=== PATIENT | female | born 1945 | race Two or more races ===

== ENCOUNTER 2024-02-29 14:02 | Emergency (ER) | payer MEDICARE, MEDICAID, SELFPAY ==
[2024-02-29] VITALS (19 sets, daily range): BP systolic 154–172; BP diastolic 83–96; PULSE 64–79; O2SAT 94–97; BMI 25.5
--- NOTE | 2024-02-29 14:46 | ED_ITS ---
HPI HPI - General Adult General Chief complaint: Chest Pain Stated complaint: CVA SYMPTOMS Time Seen by Provider: 02/29/24 14:46 Source: patient and friend Mode of arrival: Wheelchair Limitations: language barrier History of Present Illness HPI narrative: This patient is here today to be evaluated for dizziness and vertigo and chest pain. The patient does have some speech challenges because of foreign nationality but her friend communicates very effectively. She said that for the last several days she has had difficulty walking because she is wobbly and has vertigo where everything is spinning around. And then she has had intermittent episodes of chest pain over the last several days. She does not have any discomfort now and her initial twelve-lead EKG did not show any gross abnormalities. She has not had previous coronary disease, abnormal stress test or heart catheterizations that the friend is aware of and she confirms that information. She is switching family doctors from a PA here in [place] to a family doctor that she scheduled to see tomorrow in [facility]. She has not had fever shakes or chills. No vomiting or diarrhea. She has not had a previous stroke. She has not had slurring of her speech but her friend believes that she was a little bit less alert today than usual. No history of falls or injury to the head or neck area. She is not on any antibiotics. Normally she is fully ambulatory and lives by herself but her friend who knows her very well says that she just has been doing very well and can hardly walk without getting short of breath. Related Data Home Medications ?Medication ?Instructions ?Recorded ?Confirmed losartan 100 1 tab PO DAILY 02/29/24 02/29/24 mg-hydrochlorothiazide 25 mg tablet Allergies Allergy/AdvReac Type Severity Reaction Status Date / Time No Known Drug Allergies Allergy Verified 02/29/24 14:12 Opioid HPI Opioid Management Most Recent Opioid Data: Last Pain Scale 7 02/29/24 14:33 Exam Narrative Exam Narrative: Patient awake alert GCS 15 follows all commands there is a mild language barrier but her friend is able to provide good translational skills for us. She does not appear acutely ill her skin is warm and dry with Mucom[place] mucous membranes pink with no evidence of pallor clamminess or diaphoresis. There is no scleral icterus. On HEENT examination she does have horizontal nystagmus. However pupillary light response is normal. There is no facial asymmetry and cranial nerves II through XII are normal. Heart rate and rhythm are normal as well. She has no arrhythmia or ST segment elevation on her EKG. Does not have any carotid bruits. Lungs are clear with no wheeze rales or rhonchi or respiratory distress. She has no desaturation while here in the ER. Extremities show no evidence of trauma or injury. There is no petechiae purpura rash or other exanthem. Constitutional Vital Signs, click to edit/add: Last Vital Signs Pulse 79 02/29/24 15:20 Resp 15 02/29/24 15:20 BP 154/96 H 02/29/24 14:09 Pulse Ox 95 02/29/24 15:20 O2 Del Method Room Air 02/29/24 14:34 Course Vital Signs Vital signs: Vital Signs Pulse Rate 79 02/29/24 14:08 Respiratory Rate 16 02/29/24 14:08 Blood Pressure 154/96 H 02/29/24 14:08 Pulse Oximetry 95 02/29/24 14:08 Oxygen Delivery Method Room Air 02/29/24 14:08 Pulse Rate 79 02/29/24 15:20 Respiratory Rate 15 02/29/24 15:20 Blood Pressure 154/96 H 02/29/24 14:09 Pulse Oximetry 95 02/29/24 15:20 Oxygen Delivery Method Room Air 02/29/24 14:34 Medical Decision Making MDM Narrative Medical decision making narrative: Patient complains of chest pain and being off balance dizziness spinning of the room. CT of the head was normal. Neurological exam showed no focal or neurological deficits in the cerebellar region or frontal area on the exam. When we walked her here after the studies were completed she felt off balance and dizzy and said that things are spinning. Her cardiac troponin and D-dimer are both negative. Twelve-lead EKG is normal. I believe most of her symptoms are explained by a vestibular dysfunction. Will place her on medications for this. Do not see any indication for further cardiac testing at this time but she should follow-up and consider that with her primary care doctor Lab Data Labs: Lab Results 02/29/24 02/29/24 Range/Units 14:34 15:55 WBC 8.7 (4.0-11.0) 10^3/uL RBC 4.05 L (4.20-5.40) 10^6/uL Hgb 12.5 (12.0-16.0) g/dL Hct 37.3 (36.0-48.0) % MCV 92.1 (81.0-99.0) fL MCH 30.9 (26.7-34.0) pg MCHC 33.5 (29.9-35.2) g/dL RDW 12.7 (11.0-15.0) % Plt Count 283 (150-450) 10^3/uL MPV 8.8 L (9.5-13.5) fL Neut % (Auto) 77.0 H (43.0-75.0) % Lymph % (Auto) 14.4 L (20.5-60.0) % [place] % (Auto) 5.8 (1.7-12.0) % Eos % (Auto) 1.4 (0.9-7.0) % Baso % (Auto) 0.9 (0.2-2.0) % Neut # (Auto) 6.7 H (1.4-6.5) 10^3/uL Lymph # (Auto) 1.3 (1.2-3.8) 10^3/uL [place] # (Auto) 0.5 (0.3-0.8) 10^3/uL Eos # (Auto) 0.1 (0.0-0.7) 10^3/uL Baso # (Auto) 0.1 (0.0-0.1) 10^3/uL Abs Immat Gran (auto) 0.04 H (0.00-0.03) 10^3/uL Imm/Tot Granulo (auto) 0.5 (0.0-0.5) % D-Dimer 0.40 (<=0.59) mg/L FEU Sodium 139 (136-145) mmol/L Potassium 3.7 (3.5-5.1) mmol/L Chloride 103 (98-107) mmol/L Carbon Dioxide 26.5 (21.0-32.0) mmol/L Anion Gap 13.2 BUN 20.0 H (7.0-18.0) mg/dL Creatinine 1.00 (0.55-1.02) mg/dL Est GFR ( Amer) >60 (>=60) Est GFR (Non-Af Amer) 54 L (>=60) BUN/Creatinine Ratio 20.0 Glucose 106 (74-106) mg/dL Calcium 9.3 (8.5-10.1) mg/dL Total Bilirubin 0.4 (0.2-1.0) mg/dL AST 18 (15-37) U/L ALT 36 (14-59) U/L Alkaline Phosphatase 97 (46-116) U/L Troponin I High Sens 11.2 (4.0-51.3) pg/mL NT-Pro-B Natriuret Pep 104.0 (<=1800.0) pg/mL Total Protein 7.1 (6.4-8.2) g/dL Albumin 3.6 (3.4-5.0) g/dL Globulin 3.5 g/dL Albumin/Globulin Ratio 1.0 Urine Color Lt. yellow (YELLOW) Urine Clarity Clear (CLEAR) Urine pH 5.5 (5.0-9.0) Ur Specific [place] 1.015 (1.005-1.025) Urine Protein Negative (NEG/TRACE) mg/dL Urine Glucose (UA) Negative (NEGATIVE) mg/dL Urine Ketones Negative (NEGATIVE) mg/dL Urine Occult Blood Negative (NEGATIVE) Urine Nitrite Negative (NEGATIVE) Urine Bilirubin Negative (NEGATIVE) Urine Urobilinogen 0.2 (0.2-1.0) EU/dL Ur Leukocyte Esterase Negative (NEGATIVE) Discharge Plan Discharge Chief Complaint: Chest Pain Clinical Impression: Vertigo Patient Disposition: Home, Self-Care Time of Disposition Decision: 16:36 Prescriptions / Home Meds: No Action losartan-hydrochlorothiazide 100-25 mg tablet 1 tab PO DAILY Print Language: Niuean Additional Instructions: Antivert 3 times a day for several days. Follow-up primary care doctor to consider other testing as discussed Referrals: Physician,Non-Staff, MD [Primary Care Provider] - 1 week
--- NOTE | 2024-02-29 14:48 | XR_ITS ---
The [address] [address] Patient Name: ROBYN LUNDBERG MRN: [id number] date: 1945 Sex: F Assigned Patient Location: ER Current Patient Location: ER Accession/Order Number: [id number] Exam Date: 02/29/2024 15:01 Report Date: 02/29/2024 15:21 At the request of: FABIOLA GRAHAM Procedure: XR chest 1V EXAMINATION: XR chest 1V HISTORY: Chest pain COMPARISON: No relevant comparison available. FINDINGS: LUNGS: Underexpanded lungs with mild haziness within left lateral lung base. VASCULATURE: No increased pulmonary vasculature. PLEURA: No pneumothorax, effusion, or pleural thickening. CARDIAC: No cardiomegaly or cardiac silhouette abnormality. MEDIASTINUM: No visible mass or adenopathy. BONES: No fracture or visible bone lesion. OTHER: Negative. XR/XR chest 1V IMPRESSION: 1. Low lung volume examination with mild lingular infiltrates versus atelectasis. Electronically authenticated by: CASEY ARANDA Date: 02/29/2024 15:21
--- NOTE | 2024-02-29 14:48 | ECG_ITS ---
The [facility] Test Date: 2024-02-29 Pat Name: ROBYN LUNDBERG Department: Room: - Gender: Female [employer]ping Machine Operator: : 1945 Requested By: Order Number: [id number] Reading MD: DAYA SCHMITT Measurements Intervals [place] Rate: 76 P: 49 UT: 184 QRS: 58 QRSD: 86 T: 40 QT: 402 QTc: 432 Interpretive Statements 1100 Sinus rhythm 9110 normal ECG Compared to ECG 09/03/2022 04:52:55 T-wave abnormality no longer present Possible ischemia no longer present Electronically Signed On 02-29-2024 22:56:59 EDT by DAYA SCHMITT
--- NOTE | 2024-02-29 14:48 | CT_ITS ---
The [place] [id number] Patient Name: ROBYN LUNDBERG MRN: [id number] date: 1945 Sex: F Assigned Patient Location: ER Current Patient Location: ER Accession/Order Number: [id number] Exam Date: 02/29/2024 15:01 Report Date: 02/29/2024 15:22 At the request of: FABIOLA GRAHAM Procedure: CT head/brain wo con EXAMINATION: CT head/brain wo con, 02/29/2024 3:01 PM EDT HISTORY: Altered mental status COMPARISON: None. TECHNIQUE: CT of the head without intravenous contrast. Dose reduction techniques were achieved by using automated exposure control and/or adjustment of mA and/or kV according to patient size and/or use of iterative reconstruction technique. FINDINGS: There is no evidence of acute intracranial hemorrhage, extra-axial collection, mass effect, midline shift, herniation or hydrocephalus. The ventricles, sulci and cisterns are normal configuration, prominent, reflecting a degree of volume loss.. Subcortical and periventricular white matter hypoattenuation presumably chronic microvascular ischemic change. Tiny focus of left frontal encephalomalacia with punctate cortical calcification relating to remote insult. The mastoid air cells are clear. There is no evidence of skull fracture. The surrounding soft tissues and osseous structures are unremarkable. CT/CT head/brain wo con IMPRESSION: 1. No acute intracranial finding such as hemorrhage, mass effect, hydrocephalus, or skull fracture. Electronically authenticated by: WALT SHANE Date: 02/29/2024 15:22
[2024-02-29 14:58] LABS: Basophils Absolute Auto 0.1 10^3/uL (0.0-0.1); Basophils Percent Auto 0.9 % (0.2-2.0); Eosinophils Absolute Auto 0.1 10^3/uL (0.0-0.7); Eosinophils Percent Auto 1.4 % (0.9-7.0); Hematocrit 37.3 % (36.0-48.0); Hemoglobin 12.5 g/dL (12.0-16.0); Immature Granulocytes Abs Auto 0.04 10^3/uL (0.00-0.03); Immature Granulocytes Pct Auto 0.5 % (0.0-0.5); Lymphocytes Absolute Auto 1.3 10^3/uL (1.2-3.8); Lymphocytes Percent Auto 14.4 % (20.5-60.0); Mean Corpuscular HGB Conc 33.5 g/dL (29.9-35.2); Mean Corpuscular Hemoglobin 30.9 pg (26.7-34.0); Mean Corpuscular Volume 92.1 fL (81.0-99.0); Mean Platelet Volume 8.8 fL (9.5-13.5); Monocytes Absolute Auto 0.5 10^3/uL (0.3-0.8); Monocytes Percent Auto 5.8 % (1.7-12.0); Neutrophils Absolute Auto 6.7 10^3/uL (1.4-6.5); Platelet Count 283 10^3/uL (150-450); Red Blood Count 4.05 10^6/uL (4.20-5.40); Red Cell Distribution Width 12.7 % (11.0-15.0); White Blood Count 8.7 10^3/uL (4.0-11.0)
[2024-02-29 15:08] LABS: Alanine Aminotransferase 36 U/L (14-59); Albumin Level 3.6 g/dL (3.4-5.0); Alkaline Phosphatase 97 U/L (46-116); Anion Gap 13.2; Aspartate Amino Transferase 18 U/L (15-37); Bilirubin Total 0.4 mg/dL (0.2-1.0); Calcium 9.3 mg/dL (8.5-10.1); Carbon Dioxide 26.5 mmol/L (21.0-32.0); Chloride 103 mmol/L (98-107); Estimated GFR (African America >60 (>=60); Estimated GFR (Non-African Ame 54 (>=60); Globulin 3.5 g/dL; Glucose 106 mg/dL (74-106); Potassium 3.7 mmol/L (3.5-5.1); Sodium 139 mmol/L (136-145); Total Protein 7.1 g/dL (6.4-8.2)
[2024-02-29 15:11] LABS: Troponin I High Sensitivity 11.2 pg/mL (4.0-51.3)
[2024-02-29 16:13] LABS: Bilirubin Urine NEGATIVE (NEGATIVE); Blood Urine NEGATIVE (NEGATIVE); Clarity Urine CLEAR (CLEAR); Color Urine LT. YELLOW (YELLOW); Glucose Urine UA NEGATIVE (NEGATIVE); Ketones Urine NEGATIVE (NEGATIVE); Leukocyte Esterase Urine NEGATIVE (NEGATIVE); Nitrite Urine NEGATIVE (NEGATIVE); Protein Urine NEGATIVE (NEG/TRACE); Specific Gravity Urine 1.015 (1.005-1.025); Urine Microscopic Indicated NO; Urobilinogen Urine 0.2 EU/dL (0.2-1.0); pH Urine 5.5 (5.0-9.0)
== END 2024-02-29 17:08 | disposition home or self-care (01) ==
PROVIDERS: Emergency Provider Emergency Medicine Emergency Medical Services
DX: R42 Dizziness and giddiness (principal); R07.9 Chest pain, unspecified; R06.02 Shortness of breath
CPT/HCPCS: 36415; 70450; 71045; 80053; 81003; 83880; 84484; 85025; 85378; 93005; 99285; Q9967